=== PATIENT | female | born 1960 | race African-American/Black ===

== ENCOUNTER 2019-02-09 08:43 | Day surgery (SDC) | payer OTHER ==
[~2019-02-09] VITALS: Ht 167.6 cm; Wt 90.7 kg
[2019-02-09] VITALS (7 sets, daily range): BP systolic 111–146; BP diastolic 67–91
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
[~2019-02-09 08:43] MED LIST: Atropine Inj 1mg/10ml Syr IV PRN; DiphenhydrAMINE 50mg/ml Inj IVP PRN; LR 1000ml 1,000 ML IVLG SCH; Midazolam 2mg/2ml Inj IVP PRN; fentaNYL 100 mcg/2 mL IV PRN
[2019-02-09] MEDS ORDERED: BISACODYL5 MG ORAL (09:41)
[2019-02-09] MEDS ORDERED: LIDOCAINE CREAM TOPIC (09:41)
[2019-02-09] MEDS ORDERED: BUSPAR10 MG ORAL (09:41)
[2019-02-09] MEDS ORDERED: IBUPROFEN100 M2 PO (09:41)
--- NOTE | 2019-02-09 09:57 | Short Stay Surgery H&P ---
History of Present Illness History of Present Illness Chief Complaint Abdominal pains/GERDS/diarrhea/dysphagia HPI Jillian Hansen is a 58 year old female who was admitted on for GERDS/ abdominal pains/dysphagia/diarrhea Patient History Allergies: Coded Allergies: No Known Allergies (Unverified , 02/09/19) PAST MEDICAL HISTORY: (1) History of Medication History Scheduled Bisacodyl* (Dulcolax*), Unknown Dose ORAL NEEDED, (Reported) Buspirone Hcl* (Buspar*), Unknown Dose ORAL NEEDED, (Reported) Ibuprofen (Ibuprofen), 100 MG PO NEEDED, (Reported) [Lidocaine Cream ], Unknown Dose TOPIC NEEDED, (Reported) Review of Systems Cardiovascular: Reports: no symptoms Respiratory: Reports: no symptoms Skeletal: Reports: trauma Gastrointestinal: Reports: gastro esophageal reflux disease Genitourinary: Reports: no symptoms Neurologic: Reports: no symptoms Endocrine: Reports: no symptoms Hematologic: Reports: no symptoms Physical Exam Vital Signs Last Vital Signs Date Time Temp Pulse Resp B/P (MAP) Pulse Ox O2 Delivery O2 Flow Rate FiO2 02/09/19 09:36 Room Air 02/09/19 09:25 98.2 82 18 146/91 99 Skin: normal HENT: normal Heart: normal Lungs: normal Abdomen: abnormal Extremities: normal Genitourinary: normal Plan Plan of Care Upper GI endoscopy with biopsy Preop Interventions None. Summary of Findings See the reports Attestation Are the patient's medical conditions optimized for surgery? Attestation Response: yes Eileen Hoskins MD Feb 09, 2019 09:57
[2019-02-09] MEDS ORDERED: LR 1000ml ONE (10:01)
[2019-02-09] MEDS ORDERED: Lidocaine 1% MPF 10mg/ml 5ml ONE (10:01)
[2019-02-09] MEDS ORDERED: Esmolol 100mg/10ml Inj ONE (10:01)
[2019-02-09] MEDS ORDERED: Propofol 200mg/20ml IV ONE (10:01)
--- NOTE | 2019-02-09 10:04 | Pre-Procedure Note/Attestation ---
Pre-Procedure Note/Attestation Complete Prior to Procedure Planned Procedure: left Procedure Narrative: Endoscopic exam of the upper GI tract with biopsy. Indications for Procedure Pre-Operative Diagnosis: R/O Peptic ulcer/gastritis/esophagitis. Attestation I attest that I discussed the nature of the procedure; its benefits; risks and complications; and alternatives (and the risks and benefits of such alternatives ), prior to the procedure, with the patient (or the patient's legal inbound sales representative). I attest that, if there was a reasonable possibility of needing a blood transfusion, the patient (or the patient's legal inbound sales representative) was given the [place] Department [employer] standardized written summary, pursuant to the Fabian Jelena Blood Safety Act ([place] Health and Safety Code # 1645, as amended). I attest that I re-evaluated the patient just prior to the surgery and that there has been no change in the patient's H&P, except as documented below: Eileen Hoskins MD Feb 09, 2019 10:04
--- NOTE | 2019-02-09 10:36 | Endoscopy Procedure Note ---
Endoscopy Procedure Note General Indication for Procedure: Abdominal pains/GERDs/diarrhea Procedures Performed: EGD - Mild gastritis wih prepyloric erythema and edema biopsied. Gastric biopsy also was done from lower mid body of stomach. Specimen: yes Pt Tolerated Procedure Well: Yes Estimated Blood Loss: none Anesthesia Anesthesiologist: Dr. Greene Anesthesia: moderate sedation Medications Medication Given: see anesthesia record Inserted Devices Implant(s) used?: No Quality Quality of Bowel Preparation: Excellent GI Core Measures 50 yrs or older w/o bx or poly: Not Applicable 10yrs. F/U recommended: Not Applicable If not recommended, why?: Med reason:<3 yrs.: System Reason:<3 yrs.: Eileen Hoskins MD Feb 09, 2019 10:36
--- NOTE | 2019-02-09 10:37 | Discharge Instructions ---
Discharge Instructions Discharge Instructions Follow up with: Visit the doctor in office after 2 weeks. For Congestive Heart Failure Reminder Report to your physician any weight gain of 5 pounds or more in one week. Eileen Hoskins MD Feb 09, 2019 10:37
--- NOTE | 2019-02-09 11:14 | Immediate Post-Op Evaluation ---
Immediate Post-Op Evalulation Immediate Post-Op Evalulation Procedure: egd w/ bx Date of Evaluation: Feb 09, 2019 Time of Evaluation: 11:02 IV Fluids: 300ml lr Blood Products: none Estimated Blood Loss: negligible Blood Pressure Diastolic: 77 Pulse Rate: 98 Respiratory Rate: 18 O2 Sat by Pulse Oximetry: 100 Temperature (Fahrenheit): 98.0 Pain Score (1-10): 0 Nausea: No Vomiting: No Complications none Patient Status: awake, reacts, patent Hydration Status: adequate Drug: Jillian Tang MD Feb 09, 2019 11:14
--- NOTE | 2019-02-09 11:16 | 48 Hour Post Anesthesia Eval ---
Post Anesthesia Evaluation Procedure: egd w/ bx Date of Evaluation: Feb 09, 2019 Time of Evaluation: 11:04 Blood Pressure Systolic: 117 0: 78 Pulse Rate: 78 Respiratory Rate: 18 Temperature (Fahrenheit): 98.0 O2 Sat by Pulse Oximetry: 100 Airway: patent Nausea: No Vomiting: No Pain Intensity: 0 Hydration Status: adequate Cardiopulmonary Status: stable Mental Status/LOC: patient returned to baseline Post-Anesthesia Complications: none Follow-up care needed: N/A Jillian Greene MD Feb 09, 2019 11:16
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
--- NOTE | 2019-02-09 15:45 | Operative Note - Dictated ---
DATE OF OPERATION: 02/09/2019 SURGEON: Eileen Hoskins M.D. PROCEDURE: Esophagogastroduodenoscopy with biopsy. PREOPERATIVE DIAGNOSES: Abdominal pain, chest pain, diarrhea, dysphagia, heartburn. POSTOPERATIVE DIAGNOSIS: Mild gastritis with edema and erythema of the pre-pyloric area. Biopsies were taken from mid gastric body and pre-pyloric section. MEDICATION USED: Per Dr. Gay, anesthesiologist. INSTRUMENT: GIF Olympus video upper GI endoscope. DESCRIPTION OF PROCEDURE: The patient after arriving in the endoscopy unit, was told about risks and benefits of the procedure, which she accepted and signed informed consent. She was then put on the left lateral decubitus position. After adequate IV sedation, the scope was gently passed through the cricopharyngeal area, was lodged into the upper esophagus and gradually advanced towards gastroesophageal junction. The entire length of esophagus looked normal without any pathology such as ulcers, strictures, inflammatory process, etc. The scope reached towards the GE junction, which was normal and no evidence of Hernandes's or hiatal hernia noted. At this time, the scope was advanced into the stomach, gastric cavity was distended with insufflation of air. It revealed that there was areas of mild erythema, mostly over the posterior wall mid body of the stomach in the greater curvature side along with significant edema and mild erythema in the pre-pyloric section going towards the pyloric channel. These two areas were also biopsied. At this point, a retroflexion maneuver was applied. The area of the gastroesophageal junction was examined in a closer fashion, which revealed no other pathology. Finally, the scope was passed through the pylorus. First and second portion of duodenum were examined and there were found to be completely normal. At this time, the scope was pulled out and procedure was terminated. The patient tolerated the procedure well and left the endoscopy room in a good condition. Hola Denton JOB#: [id number] CC:
== END 2019-02-09 12:55 | disposition home or self-care (01) ==
LOC: GAS 08:43
DX: R10.9 Unspecified abdominal pain (principal); R07.9 Chest pain, unspecified; R19.7 Diarrhea, unspecified; R13.10 Dysphagia, unspecified; R12 Heartburn; Z79.899 Other long term (current) drug therapy; K21.9 Gastro-esophageal reflux disease without esophagitis; K29.50 Unspecified chronic gastritis without bleeding; B96.81 Helicobacter pylori [H. pylori] as the cause of diseases classified elsewhere
CPT/HCPCS: 43239; J2704; J7120; 94003; 94150